=== PATIENT | male | born 1965 | race Caucasian/White ===

== ENCOUNTER 2024-11-04 11:53 | Outpatient (CLI) | payer OTHER, SELFPAY ==
--- OUTSIDE RECORDS SUMMARY | 2024-11-04 11:56 | XMS_ITS | Clinical Summary ---
Author Organization [facility] Address Critical access hospital[address] [place] [address] Care Team Providers Care Automotive Porter Name Role Phone Amparo Craven RN Unavailable Unavailable Valdez Abdalla MD Primary Care Provider [phone] Shelby Garcia MD Unavailable Allergies Active Allergy Reactions Criticality Noted Date Comments Diphenhydramine Joint Pain Medium 07/03/2014 Duloxetine Hcl Hives Low 09/29/2015 Ibuprofen Joint Pain Medium 07/03/2014 Sulfa Antibiotics Hives 08/24/2022 Vancomycin Unknown 09/29/2022 Medications clopidogrel 75 MG tabletIndications :blood thinner;last dose 12/13/2018 Take 1 tablet (75 mg total) by mouth daily. Indications: blood thinner;last dose 12/13/2018 013 Active metoprolol tartrate 50 MG tablet metoprolol tartrate 50 mg tablet TAKE 1 TABLET BY MOUTH TWICE DAILY Active lisinopril 10 MG tablet lisinopril 10 mg tablet TAKE 1 TABLET BY MOUTH DAILY Active omeprazole 40 MG capsule omeprazole 40 mg capsule,delayed release TAKE 1 CAPSULE BY MOUTH DAILY Active hydroCHLOROthiazi de 25 MG tablet hydrochlorothiazide 25 mg tablet TAKE 1 TABLET BY MOUTH TWICE DAILY Active TRESIBA FLEXTOUCH 200 UNIT/ML injection (PEN) Inject 60 Units into the skin 2 (two) times daily. MORNING AND NIGHT 021 Active aspirin EC (ECOTRIN) 81 MG tablet Take 2 tablets (162 mg total) by mouth daily. Ac tive Insulin Aspart Prot & Aspart (NOVOLOG MIX 70/30 SC) Inject 11 Units into the skin. 11 UNITS BREAKFAST AND LUNCH 13 UNITS AT DINNER Active atorvastatin (LIPITOR) 80 MG tablet Take 1 tablet (80 mg total) by mouth daily. 30 tablet Active ONETOUCH ULTRA test strip 5 (five) times daily. Active clotrimazole (MYCELEX) 10 MG mica Take 1 Mica (10 mg total) by mouth 6 (six) times daily. Active RYBELSUS 7 MG Tab Take 1 tablet by mouth daily. Active ezetimibe (ZETIA) 10 MG tablet Take 1 tablet (10 mg total) by mouth daily. 30 tablet 6 Active Additional Information Patient not taking.Reported on 08/02/2024 isosorbide mononitrate ER (IMDUR) 120 MG 24 hr tablet Take 1 tablet (120 mg total) by mouth every morning. May take an additional tablet as needed. 60 tablet 11 Active fluconazole (DIFLUCAN) 100 MG tablet Take 1 tablet (100 mg total) by mouth daily. Ac tive ondansetron (ZOFRAN-ODT) 4 MG disintegrating tablet Take 1 tablet (4 mg total) by mouth every 8 (eight) hours as needed for Nausea. 10 tablet 025 Active Active Problems Problem Noted Date Diagnosed Date S/P CABG (coronary artery bypass graft) 08/06/19 24 S/P coronary artery stent placement 08/06/2023 Chronic osteomyelitis involv ing ankle and foot, left ([facility]) 10/03/2022 Overview (10/03/2022): Added automatically from request for surgery [id number] Osteomyelitis ([facility]) 09/29/2022 Encounter for post surgical wound check 07/01/19 23 Cellulitis of left foot 05/15/2022 Ulcer of left foot ([facility]) 02/09/2022 Aftercare following surgery 01/24/2022 Infected traumatic ulcer of lower extremity, left, with unspecified severity ([facility]) 12/08/2021 Diabetic foot ulcer with osteomyelitis ([facility]) 12/02/2021 Abscess 11/02/2021 Acquired hammer toe of left foot 06/21/2021 Tobacco use 10/12/2018 Peripheral polyneuropathy 04/19/2018 Localized edema 02/08/2017 Neuropathy 02/08/2017 CAD (coronary artery disease) 02/16/2004 Overview (11/18/2015): CAD with CABG in February 2004, coronary PCI, RCA Hypertension Hyperlipidemia Diabetes (CMS/HCC HHS/HCC) Foot pain, right Overview (04/14/2021): ulcer removed;had previous surgery Cavus deformity of left foot Resolved Problems Problem Noted Date Diagnosed Date Resolved Date Pre-operative cardiovascular examination 05/05/2021 05/10/2021 Depression (emotion) 07/26/2017 018 Chest pain 07/17/2017 10/12/2018 Encounters Date Type Department Care Team Description 2024 1:13 PM CDT - 2024 5:55 PM CDT Emergency [facility] Critical access hospital[address] [place] [address] Igor No, Generalized Weakness Discharge Disposition: Home or Self Care (Routine Discharge) 2024 Travel from Last 3 Months Family History Medical History Relation Comments Cancer Father lung Diabetes Mother Hypertension Mother Relation Status Comments Brother 1 Alive Brother 2 Alive Father Maternal Grandfather Maternal Grandmother Mother Alive Paternal Grandfather Paternal Grandmother Sister Alive Son Alive Social History Tobacco Use Types Packs/Day Years Used Date Smoking Tobacco: Every Day Cigarettes 0.5 38 Smokeless Tobacco: Never Tobacco Cessation:Ready to Q uit: Not Asked; Counseling Given: Not Answered Alcohol Use Standard Drinks/Week Comments Not Currently 0 (1 standard drink = 0.6 oz pur e alcohol) very seldom Humiliation, Afraid, Rape, and Kick questionnair e Answer Date Recorded Within the last year, have y ou been afraid of your partner or ex-partner? No 09/29/2022 Within the last year, have y ou been humiliated or emotionally abused in other ways by your partner or ex-partner? No Within the last year, have y ou been kicked, hit, slapped, or otherwise physically hurt by your partner or ex-partner? No 09/29/2022 Within the last year, have y ou been raped or forced to have any kind of sexual activity by your partner or ex-partner? No 09/29/2022 Overall Financial Resource Strain (CARDIA) Answe r Date Recorded How hard is it for you to pa y for the very basics like food, housing, medical care, and heating? Patient declined 09/29/2022 Hunger Vital Sign Answer Date Recorded Within the past 12 months, y ou worried that your food would run out before you got the money to buy more. Patient declined Within the past 12 months, t he food you bought just didn't last and you didn't have money to get more. Patient declined PRAPARE - Transportation Answer Date Re corded In the past 12 months, has l ack of transportation kept you from medical appointments or from getting medications? No 09/15 In the past 12 months, has l ack of transportation kept you from meetings, work, or from getting things needed for daily living? No 09/29/2022 Housing Stability Vital Sign Answer Yonatan e Recorded In the last 12 months, was t here a time when you were not able to pay the mortgage or rent on time? No 09/29/2022 In the last 12 months, how many places have you lived? 1 09/29/2022 In the last 12 months, was t here a time when you did not have a steady place to sleep or slept in a retirement (including now)? No 09/29/2022 Sex and Gender Information Value Date Recorded Sex Assigned at Male 2024 2:16 PM CDT Legal Sex Male 10:29 PM CDT Gender Identity Not on file Sexual Orientation Not on file Last Filed Vital Signs Vital Sign Reading Time Taken Comments Blood Pressure 137/65 2024 5:30 PM CDT Pulse 58 2024 5:30 PM CDT Temperature 36.2 C (97.1 F) 2024 1:22 PM CDT Respiratory Rate 18 2024 4:30 PM CDT Oxygen Saturation 98% 2024 5:30 PM CDT Inhaled Oxygen Concentration - - Weight 122.9 kg (271 lb) 2024 1:22 PM CDT Height 195.6 cm (6' 5) 2024 1:22 PM CDT Body Mass Index 32.14 2024 1:22 PM CDT Plan of Treatment Upcoming Encounters Date Type Department Care Team (Late st Contact Info) Description 07/21/2025 8:[address] [facility] [address] [place] [address] Shelby Garcia MD [address] [place] [address] 07/23/2025 10:[address] [place] [address] Shelby Garcia MD [address] [place] [address] 08/11/2025 10:45 AM CDT Office Visit [facility] [id number] [place] [address] Shelby Garcia MD [address] [place] [address] Health Maintenance Due Date Last Done Comments ASCVD Statin 1966 Colorectal Cancer Screening Colonoscopy (10 Years) 1966 Kidney Health Evaluation 1966 Annual Physical 1969 Diabetes: Retinopathy Eye Exam 1984 Hepatitis C 1984 DTaP, Tdap and Td Vaccines (1 - Tdap) 1985 Hepatitis B Vaccines (1 of 3 - 19+ 3-dose series) 1985 Zoster Vaccines (1 of 2) 2016 Pneumococcal Vaccine: 50+ Years (2 of 2 - PCV) 01/02/2018 01/02/2017 COVID-19 Vaccine (1 - 2023- season) 2023 Hemoglobin A1C 05/10/2024 02/08/2024, 11/16, 05/25/2017 Lipid Panel 02/07/2025 02/08/2024, 11/16, 10/28/2022, Additional history exists Meningococcal B Vaccine Aged Out No l onger eligible based on patient's age to complete this topic Meningococcal Vaccine Aged Out No jaydon miki eligible based on patient's age to complete this topic RSV Immunizations Under 20 Months Aged Out No longer eligible based on patient's age to complete this topic Goals Goal Patient Goal Type Associated Problems Recent Progress Patient-Stated? 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 CABLE JOINTER Patient will return to prior living situation and remain independent in ADLs upon discharge from hospital Lifestyle No Donna Joy, RN Medical Devices Implanted Type Area Oil Operator Device Identifier Shelf Expiration Date Model / Serial / Lot Stent Stent Description:Heart -14 stents Screw Cortical Depuy 2.7 X 20mm - [id number] Implanted:Qty: 1 on 12/20/2018 by Ervin Turcios MD at [facility] Right: Foot [employer] [id number] / / NA Screw Cortical Depuy 2.7 X 22mm - [id number] Implanted:Qty: 1 on 12/20/2018 by Ervin Turcios MD at [facility] Right: Foot [employer] [id number] / / NA Screw Cortical Depuy 2.7 X 22mm - [id number] Implanted:Qty: 1 on 12/20/2018 by Ervin Turcios MD at [facility] Right: Foot [employer] [id number] / / NA K Wire Sujit 6 In X .062 In - [id number] Implanted:Qty: 1 on 12/20/2018 by Ervin Turcios MD at [facility] Right: Foot [employer] 08/14/2028 [id number] / / [id number] K Wire Sujit 6 In X .062 In - [id number] Implanted:Qty: 1 on 12/20/2018 by Ervin Turcios MD at [facility] Right: Foot [employer] 08/14/2028 [id number] / / [id number] K Wire Sujit 6 In X .062 In - [id number] Implanted:Qty: 1 on 12/20/2018 by Ervin Turcios MD at [facility] Right: Foot [employer] 10/14/2028 [id number] / / [id number] K Wire Sujit 6 In X .062 In - [id number] Implanted:Qty: 1 on 12/20/2018 by Ervin Turcios MD at [facility] Right: Foot [employer] 08/14/2028 [id number] / / [id number] Plate T Depuy - [id number] Implanted:Qty: 1 on 12/20/2018 by Ervin Turcios MD at [facility] Right: Foot [employer] [id number] / / NA Screw Cortical Depuy 2.7 X 28mm - [id number] Implanted:Qty: 1 on 12/20/2018 by Ervin Turcios MD at [facility] Right: Foot [employer] [id number] / / NA Screw Cortical Depuy 2.7 X 30mm - [id number] Implanted:Qty: 1 on 12/20/2018 by Ervin Turcios MD at [facility] Right: Foot [employer] [id number] / / NA T8 Narrow Lock T-Plate Implanted:Qty: 1 on 05/18/2021 by Ervin Turcios MD at [facility] Left: Foot [id number] / / Locking Screw 30mm Implanted:Qty: 1 on 05/18/2021 by Ervin Turcios MD at [facility] Left: Foot [id number] / / Locking Screw 20mm Implanted:Qty: 1 on 05/18/2021 by Ervin Turcios MD at [facility] Left: Foot [id number] / / Locking Screw 24mm Implanted:Qty: 1 on 05/18/2021 by Ervin Turcios MD at [facility] Left: Foot [id number] / / Locking Screw 18mm Implanted:Qty: 1 on 05/18/2021 by Ervin Turcios MD at [facility] Left: Foot [id number] / / K-Wires Implanted:Qty: 4 on 05/18/2021 by Ervin Turcios MD at [facility] Left: Foot 186-76 / / Explanted Type Area Oil Operator Device Identifier Shelf Expiration Date Model / Serial / Lot 2.0 Drill Bit Explanted:Qty: 1 on 12/20/2018 by Ervin Turcios MD at [facility] Right: Foot [facility] 2 / / NA Cameron Drill Bit Explanted:Qty: 1 on 05/18/2021 at [facility] Left: Foot [id number] / / T8 Blade Explanted:Qty: 1 on 05/18/2021 at [facility] Left: Foot [id number] / / K-Wires Explanted:Qty: 2 on 05/18/2021 at [facility] Left: Foot 186-76 / / Procedures Procedure Name Priority Date/Time Associated Diagnosis Comments TROPONIN, QUANT STAT 2024 3:49 PM CDT XR CHEST PORTABLE STAT 2024 1:[address] HEAD WO CON STAT 2024 1:47 PM CDT POCT GLUCOSE - DOCKED DEVICE Routine 2024 1:40 PM CDT PRO-BRAIN NATRIURETIC PEPTIDE STAT 2024 1:31 PM CDT ETHANOL STAT 2024 1:31 PM CDT MAGNESIUM STAT 2024 1:31 PM CDT PARTIAL THROMBOPLASTIN TIME,PTT STAT 2024 1:31 PM CDT PROTHROMBIN TIME, VENOUS STAT 2024 1:31 PM CDT TROPONIN, QUANT STAT 2024 1:31 PM CDT COMPREHENSIVE METABOLIC PANEL STAT 2024 1:31 PM CDT CBC W/DIFF AUTOMATED STAT 2024 1:31 PM CDT ECG 12-LEAD Routine 2024 1:15 PM CDT LIPID PANEL Routine 02/08/2024 8:16 AM CDT Hyperlipidemia, unspecified hyperlipidemia type HEMOGLOBIN, GLYCOSYLATED Routine 02/08/2024 8:16 AM CDT Type 2 diabetes mellitus without complication, without long-term current use of insulin ([facility]) from Last 3 Months or Most Recently Relevant to Health Maintenance Results * TROPONIN, QUANT (2024 3:49 PM CDT) Only the most recent of2 resultswithin the time period is included. TROPONIN I HIGH SENSITIVITY 21 0 - 76 ng/L 2024 4:22 PM CDT [facility] 2024 3:49 PM CDT Igor No DO LABORATORY Final Result [facility] [address] [place] [address], * XR CHEST PORTABLE (2024 1:55 PM CDT) Anatomical Region Laterality Modality Chest Radiographic Debbie ging 2024 1:53 PM CDT Impressions 2024 1:54 PM CDT IMPRESSION: No acute cardiopulmonary process identified. Ordered By: IGOR NO Interpreted By: Olegario Cadet MD, 2024 1:53 PM Narrative 2024 1:54 PM CDT [address] [place] [address] Examination: Portable chest. Exam time: 1346 hours. Clinical history: Dyspnea. Comparison: 12/30/2021. Technique: AP upright view. Findings: Allowing for differences in projection and rotation, the cardiomediastinal silhouette is stable. Allowing for projection, the heart size is probably normal. Pulmonary vascularity is within normal limits. Changes from median sternotomy and bypass grafting are again evident. The left-sided PICC line has been removed. No acute infiltrates or effusions are identified. The visualized bony thorax is stable. Procedure Note Olegario Cadet MD - [address] [place] [address] Examination: Portable chest. Exam time: 1346 hours. Clinical history: Dyspnea. Comparison: 12/30/2021. Technique: AP upright view. Findings: Allowing for differences in projection and rotation, thecardiomediastinal silhouette is stable. Allowing for projection, the heartsize is probably normal. Pulmonary vascularity is within normal limits.Changes from median sternotomy and bypass grafting are again evident. Theleft-sided PICC line has been removed. No acute infiltrates or effusionsare identified. The visualized bony thorax is stable. IMPRESSION: No acute cardiopulmonary process identified. Ordered By: IGOR NO Interpreted By: Olegario Cadet MD, 2024 1:53 PM us Igor No DO GENERAL IMAGING Final Result * CT HEAD WO CON (2024 1:47 PM CDT) Anatomical Region Laterality Modality Head Computed Tomogra phy 2024 1:55 PM CDT Impressions 2024 1:58 PM CDT IMPRESSION: 1. No acute intracranial process identified. 2. Mild small vessel disease. Ordered By: IGOR NO Interpreted By: Olegario Cadet MD, 2024 1:55 PM Narrative 2024 1:58 PM CDT [address] [place] [address] Examination: CT of the head without contrast. Exam time: 1347 hours. Clinical history: Right-sided weakness for two days. History of diabetes, hypertension and hyperlipidemia. Comparison: None. Technique: Noncontrast axial scans from skull base to vertex. Sagittal and coronal reconstructions were performed from the data set. A dose lowering technique was used for this procedure, which may include, but is not limited to, dose reduction techniques, automated exposure control, the use of iterative reconstruction and ALARA/Image Gently techniques. Findings: The ventricles are normal in size and configuration. No shift of midline or mass effect is noted. There is mild prominence of the fissures and sulci, compatible with age. There is mild periventricular decreased attenuation, compatible with small vessel disease. No other areas of abnormal x-ray attenuation are identified. In particular, there is no mass, hemorrhage or sign of acute stroke. No extracerebral fluid collections. The mastoid air cells and visualized paranasal sinuses appear clear. Procedure Note Olegario Cadet MD - [address] [place] [address] Examination: CT of the head without contrast. Exam time: 1347 hours. Clinical history: Right-sided weakness for two days. History of diabetes,hypertension and hyperlipidemia. Comparison: None. Technique: Noncontrast axial scans from skull base to vertex. Sagittal andcoronal reconstructions were performed from the data set. A dose loweringtechnique was used for this procedure, which may include, but is notlimited to, dose reduction techniques, automated exposure control, the useof iterative reconstruction and ALARA/Image Gently techniques. Findings: The ventricles are normal in size and configuration. No shift ofmidline or mass effect is noted. There is mild prominence of the fissuresand sulci, compatible with age. There is mild periventricular decreasedattenuation, compatible with small vessel disease. No other areas ofabnormal x-ray attenuation are identified. In particular, there is nomass, hemorrhage or sign of acute stroke. No extracerebral fluidcollections. The mastoid air cells and visualized paranasal sinuses appearclear. IMPRESSION: 1. No acute intracranial process identified. 2. Mild small vessel disease. Ordered By: IGOR NO Interpreted By: Olegario Cadet MD, 2024 1:55 PM us Igor No DO CT Final Result * (ABNORMAL) POCT glucose (2024 1:40 PM CDT) GLUCOSE POC 253(H) 70 - 99 MG/DL 2024 1:42 PM CDT [facility] 2024 1:40 PM CDT us Igor No DO POCT ORDERABLES - DEVICE Fin al Result Performing Organization Address [facility] Co de Phone Number [facility] [address] [place] [address], * (ABNORMAL) PRO-BRAIN NATRIURETIC PEPTIDE (2024 1:31 PM CDT) PRO-B TYPE NATRIURETIC PEPTIDE 212(H) <125 PG/ML 2024 2:16 PM CDT [facility] Comment: CUT POINTS ESTABLISHED BY INTERNATIONAL COLLABORATIVE ON NT PROBNP (ICON) STUDY (2006). AGE INDEPENDENT: <300 PG/ML HAS A 99% NEGATIVE PREDICTIVE VALUE FOR EXCLUDING ACUTE CHF <50 YEARS: >450 PG/ML IS CONSISTENT WITH ACUTE CHF 50-75 YEARS: >900 PG/ML IS CONSISTENT WITH ACUTE CHF >75 YEARS: >1800 PG/ML IS CONSISTENT WITH ACUTE CHF IN PATIENTS WITH RENAL INSUFFICIENCY (GFR <60), >1200 PG/ML YIELDS A DIAGNOSTIC SENSITIVITY AND SPECIFICITY OF 89% AND 72% FOR ACUTE CHF. 2024 1:3 1 PM CDT us Igor No DO LABORATORY Final Result Performing Organization Address [facility]/ZIP Co de Phone Number [facility] [address] [place] [address], * PARTIAL THROMBOPLASTIN TIME,PTT (2024 1:31 PM CDT) PTT 30.5 25.1 - 36.5 SEC 2024 1:50 PM CDT [facility] 2024 1:31 PM CDT us Igor No DO LABORATORY Final Result Performing Organization Address City/State/[facility] Co de Phone Number [facility] [address] [place] [id number], * PROTIME/INR, VENOUS (2024 1:31 PM CDT) Pathologist [facility] PROTIME 11.8 9.4 - 12.5 SEC 2024 1:50 PM CDT [facility] INR 1.0 0.8 - 1.0 2024 1:50 PM CDT [facility] 2024 1:31 PM CDT us Igor No DO LABORATORY Final Result [facility] Critical access hospital[address] [place] [address], * (ABNORMAL) COMPREHENSIVE METABOLIC PANEL (2024 1:31 PM CDT) SODIUM S/P/B 137 136 - 145 MMOL/L 2024 2:16 PM CDT [facility] POTASSIUM S/P/B 4.3 3.5 - 5.1 MMOL/L 2024 2:16 PM CDT [facility] Comment:MILD HEMOLYSIS, RESU LT MAY BE AFFECTED. CHLORIDE S/P/B 102 98 - 107 MMOL/L 2024 2:16 PM [facility] CO2 28.8 21.0 - 32.0 MMOL/L 2024 2:16 PM [facility] GLUCOSE 256(H) 70 - 99 MG/DL 2024 2:16 PM [facility] Comment: FASTING GLUCOSE 100 TO 125 MG/DL IS CONSISTENT WITH IMPAIRED FASTING GLUCOSE. FASTING GLUCOSE >125 MG/DL IS CONSISTENT WITH DIABETES. RANDOM GLUCOSE >200 MG/DL WITH HYPERGLYCEMIC SYMPTOMS IS CONSISTENT WITH DIABETES. PER ADA GUIDELINES BUN 28(H) 6 - 24 MG/DL 2024 2:16 PM [facility] CREATININE S/P/B 1.81(H) 0.70 - 1.30 MG/DL 2024 2:16 PM [facility] CALCIUM S/P/B 9.0 8.4 - 10.5 MG/DL 2024 2:16 PM [facility] BILIRUBIN TOTAL S/P/B 0.5 0.2 - 1.0 MG/DL 2024 2:16 PM [facility] Comment: THIS ASSAY IS NOT RECOMMENDED FOR PATIENTS UNDERGOING TREATMENT WITH ELTROMBOPAG DUE TO THE POTENTIAL FOR FALSELY ELEVATED RESULTS. ALKALINE PHOSPHATASE S/P/B 108 45 - 115 U/L 2024 2:16 PM [facility] AST 26 15 - 37 U/L 2024 2:16 PM [facility] Comment:MILD HEMOLYSIS, RESU LT MAY BE AFFECTED. ALT 22 16 - 63 U/L 2024 2:16 PM [facility] TOTAL PROTEIN S/P/B 6.9 6.4 - 8.2 G/DL 2024 2:16 PM [facility] ALBUMIN S/P/B 2.6(L) 3.4 - 5.0 G/DL 2024 2:16 PM [facility] ANION GAP 6.2 5.0 - 15.0 MMOL/L 2024 2:16 PM [facility] OSMOLALITY (CALC) 298 MOSM/KG 025 2:16 PM CDT [facility] Comment:REFERENCE RANGE NOT ESTABLISHED GFR ESTIMATE 43(L) >89 ML/MIN/1. 73 M2 2024 2:16 PM CDT [facility] GFR NOTES GFR REFERENCE S: 2024 2:16 PM CDT [facility] Comment: THE ESTIMATED GFR IS CALCULATED USING THE 2020 CKD-EPI EQUATION. THE FOLLOWING CATEGORIES FOR GRADING RENAL FUNCTION ARE RECOMMENDED BY THE INTERNATIONAL SOCIETY OF NEPHROLOGY (KDIGO 2012 CLINICAL PRACTICE GUIDELINE). G1,NORMAL OR HIGH: >89 ml/min/1.73 m2 G2,MILDLY DECREASED: 60-89 ml/min/1.73 m2 G3A,MILDLY TO MODERATELY DECREASED: 45-59 ml/min/1.73 m2 G3B,MODERATELY TO SEVERELY DECREASED: 30-44 ml/min/1.73 m2 G4,SEVERELY DECREASED: 15-29 ml/min/1.73 m2 G5,KIDNEY FAILURE: <15 ml/min/1.73 m2 2024 1:31 PM CDT us Igor No DO LABORATORY Final Result [facility] [address] [place] [address], * (ABNORMAL) CBC W/DIFF AUTOMATED (2024 1:31 PM CDT) WBC 11.03(H) 4.00 - 10.80 x10'3/uL 2024 1:44 PM CDT [facility] RBC 4.74 4.50 - 6.10 x10'6/uL 2024 1:44 PM CDT [facility] HGB 13.8 13.0 - 18.0 G/DL 2024 1:44 PM CDT [facility] HCT 40.7 37.0 - 52.0 % 2024 1:44 PM CDT [facility] MCV 85.9 78.0 - 100.0 FL 2024 1:44 PM CDT [facility] MCH 29.1 27.0 - 31.0 PG 2024 1:44 PM CDT [facility] MCHC 33.9 33.0 - 36.0 G/DL 2024 1:44 PM CDT [facility] RDW 12.5 11.5 - 14.5 % 2024 1:44 PM CDT [facility] PLT 255 150 - 350 x10'3/uL 2024 1:44 PM CDT [facility] MPV 10.4 7.4 - 10.4 FL 2024 1:44 PM CDT [facility] CBC COMMENT NORMAL REFERENCE RANGE NOT ESTABLISHED FOR THE PROPORTIONAL LEUKOCYTE DIFFERENTIAL. 2024 1:44 PM CDT [facility] NEUTROPHILS % 66.9 % 2024 1:44 PM CDT [facility] LYMPHOCYTES % 25.8 % 2024 1:44 PM CDT [facility] MONOCYTES % 5.0 % 2024 1:44 PM CDT [facility] EOSINOPHILS % 1.5 % 2024 1:44 PM CDT [facility] BASOPHILS % 0.5 % 2024 1:44 PM CDT [facility] IMMATURE GRANS % 0.3 % 08/30/19 1:44 PM CDT [facility] NRBC % 0.0 % 2024 1:44 PM CDT [facility] ABS. NEUTROPHILS 7.38 1.60 - 8.30 x10'3/uL 2024 1:44 PM CDT [facility] ABS. LYMPHOCYTES 2.85 0.80 - 4.70 x10'3/uL 2024 1:44 PM CDT [facility] ABS. MONOCYTES 0.55 0.00 - 1.50 x10'3/uL 2024 1:44 PM CDT [facility] ABS. EOSINOPHILS 0.16 0.00 - 0.40 x10'3/uL 2024 1:44 PM CDT [facility] ABS. BASOPHILS 0.06 0.00 - 0.20 x10'3/uL 2024 1:44 PM CDT [facility] ABS. IMMATURE GRANULOCYTES 0.03 0.00 - 0.03 x10'3/uL 2024 1:44 PM CDT [facility] ABS. NUCLEATED RBC'S 0.00 0.00 - 0.01 x10'3/uL 2024 1:44 PM CDT [facility] 2024 1:31 PM CDT us Igor No DO LABORATORY Final Result Performing Organization Address City/[facility]/[place] [address], * (ABNORMAL) MAGNESIUM (2024 1:31 PM CDT) MAGNESIUM 1.5(L) 1.8 - 2.4 MG/DL 2024 2:16 PM CDT [facility] 2024 1:31 PM CDT us Igor No DO LABORATORY Final Result [facility] [address] [place] [address], * ETHANOL (2024 1:31 PM CDT) ALCOHOL S/P/B <0.003 <0.003 G/DL 2024 2:16 PM CDT [facility] 2024 1:31 PM CDT Igor No DO LABORATORY Final Result Performing Organization Address [facility] Co de Phone Number [facility] [address] [place] [phone], * ECG 12 lead (2024 1:15 PM CDT) 2024 1:15 PM CDT Narrative [facility] - 2024 5:[address] 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 Operator: : 1965 Requested By: IGOR NO Order Number: [id number] Reading MD: Shelby Garcia Measurements Intervals [place] Rate: 66 P: 38 WA: 171 QRS: 29 QRSD: 99 T: 65 QT: 433 QTc: 456 Interpretive Statements SINUS RHYTHM NONSPECIFIC T-WAVE ABNORMALITY Igor No DO ECG ORDERABLES Final Result Performing Organization Address City/[facility]/ZIP Co de Phone Number [facility] * (ABNORMAL) HGB A1C (02/08/2024 8:16 AM CDT) HGB A1C 9.1(H) <5.7 % 02/08/2024 12:45 PM CDT [facility] ESTIMATED AVG GLUCOSE 214(H) 74 - 114 MG/DL 02/08/2024 12:45 PM CDT [facility] 02/08/2024 8:16 AM CDT Shelby Garcia MD LABORATORY Final Result [facility] [address] [place] [address], [id number] * (ABNORMAL) LIPID PANEL (02/08/2024 8:16 AM CDT) CHOLESTEROL 131 MG/DL 02/08/2024 12:09 PM CDT [facility] Comment:DESIRABLE: <200 TRIGLYCERIDES 212 MG/DL 02/08/2024 12:09 PM CDT [facility] Comment:200-499 HIGH HDL 26(L) >39 MG/DL 02/08/2024 12:09 PM CDT [facility] LDL-C 63 MG/DL 02/08/2024 12:09 PM CDT [facility] Comment:<100 OPTIMAL VLDL CALCULATION 42 MG/DL 02/08/20 12:09 PM CDT [facility] Comment:REFERENCE RANGE NOT ESTABLISHED CHOL/HDL RATIO 5.0 02/08/2024 12:09 PM CDT [facility] Comment:REFERENCE RANGE NOT ESTABLISHED LDL/HDL 2.4 02/08/2024 12:09 PM CDT [facility] Comment:REFERENCE RANGE NOT ESTABLISHED NON HDL CHOLESTEROL 105 MG/DL 02/08/2024 12:09 PM T [facility] Comment:REFERENCE RANGE NOT ESTABLISHED 02/08/2024 8:16 AM CDT Shelby Garcia MD LABORATORY Final Result [facility] [address] [place] [address], [id number] from Last 3 Months or Most Recently Relevant to Health Maintenance Insurance [employer] MEDICAID Advance Directives * Full Code (Latest Code Status on File) Date Activated Date Inactivated Comments 09/30/2022 2:46 PM 10/01/2022 7:06 PM * Full Code Date Activated Date Inactivated Comments 09/29/2022 2:19 PM 09/30/2022 2:14 PM * Full Code Date Activated Date Inactivated Comments 09/29/2022 2:02 PM 09/29/2022 2:19 PM * Full Code Date Activated Date Inactivated Comments 05/15/2022 1:29 PM 05/16/2022 7:23 PM * Full Code Date Activated Date Inactivated Comments 11/02/2021 5:44 PM 11/04/2021 6:18 PM Care Teams Automotive Porter Relationship Specialty Start Date End Date Valdez Abdalla MD [address] [place] [address] PCP - General FAMILY PRACTICE 10/12/22 Amparo Craven, contract runner (Ambulatory) CARE MANAGEMENT 05/17/22 Shelby Garcia MD [address] [place] [address] Consulting Physician CARDIOVASCULAR DISEASE 10/22/23
--- OUTSIDE RECORDS SUMMARY | 2024-11-04 11:56 | XMS_ITS | Encounter Summary ---
Author Organization [facility] Address [facility] [place] [address] Care Team Providers Care County Records Management Officer Name Role Phone Ryan Cohn MD Primary Care Provider Bob Peoples MD Unavailable [phone] Margareth Flores APRN, NP-C Unavailable [phone] Ervin Turcios MD Unavailable [phone] Amparo Craven RN Unavailable Unavailable Latricia Beltran MD Unavailable [phone] Valdez Abdalla MD Primary Care Provider [phone] Shelby Garcia MD Unavailable Encounter Details Date Type Department Care Team (Late st Contact Info) Description 03/24/2018 Abstract [facility] Neuroscience [facility] [address] [address] Gurwinder Spears MD [address] [address] Social History Tobacco Use Types Packs/Day Years Used Date Smoking Tobacco: Some Days Cigarettes 0.5 28 Smokeless Tobacco: Current Comments:Current smoker, 1/2 ppd for 28 years Alcohol Use Standard Drinks/Week Comments No 0 (1 standard drink = 0.6 oz pur e alcohol) Sex and Gender Information Value Date Recorded Sex Assigned at Male 2024 2:16 PM CDT Legal Sex Male 10:29 PM CDT Gender Identity Not on file Sexual Orientation Not on file documented as of this encounter Plan of Treatment Upcoming Encounters Date Type Department Care Team (Late st Contact Info) Description 07/21/2025 8:[address] [place] [address] Shelby Garcia MD [address] [place] [address] 07/23/2025 10:[address] 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 COVID-19 Rule Out 05/15/2021 05/15/2021 05/15/2021 7:18 AM WILDLIFE AND GAME PROTECTOR COVID-19 Rule Out 11/02/2021 11/02/2021 11/02/2021 11:38 AM CDT documented as of this encounter Care Teams County Records Management Officer Relationship Specialty Start Date End Date Ryan Cohn MD [address] [place] [phone] PCP - General FAMILY PRACTICE 11/18/15 10/11/22 Valdez Abdalla MD [address] [place] [address] PCP - General FAMILY PRACTICE 10/12/22 Bob Peoples MD [address] [place] [phone] Consulting Physician CARDIOVASCULAR DISEASE 04/05/18 Margareth Flores, CLIENT FINANCE ANALYST, BULLDOGGER-C [address] [place] [phone] NURSE PRACTITIONER 10/12/18 10/21/23 Ervin Turcios MD [address] [phone] Consulting Physician ORTHOPAEDIC SURGERY 10/12/18 Amparo Craven, class a truck driver (Ambulatory) CARE MANAGEMENT 05/17/22 Latricia Beltran MD [address] [place] [phone] Internal Medicine - Infectious Disease 09/19/22 09/20/23 Shelby Garcia MD [address] [place] [address] Consulting Physician CARDIOVASCULAR DISEASE 10/22/23 documented as of this encounter
--- OUTSIDE RECORDS SUMMARY | 2024-11-04 11:57 | XMS_ITS | Encounter Summary ---
Author Organization [facility] Address [facility] [place] [address] Care Team Providers Care Director Of Primary Care Name Role Phone Ryan Cohn MD Primary Care Provider Bob Peoples MD Unavailable [phone] Margareth Flores APRN BLUEPRINT CUTTERRandyC Unavailable Ervin Turcios MD Unavailable [phone] Amparo Craven RN Unavailable Unavailable Latricia Beltran MD Unavailable [phone] Valdez Abdalla MD Primary Care Provider [phone] Shelby Garcia MD Unavailable Encounter Details Date Type Department Care Team (Late st Contact Info) Description 09/22/2018 Abstract [facility] [address] [place] [id number] , Generic Conversion, Social History Tobacco Use Types Packs/Day Years Used Date Smoking Tobacco: Every Day Cigarettes 0.5 28 Smokeless Tobacco: Never Comments:Current smoker, 1/2 ppd for 28 years [...] CDT [facility]ointment [facility] [address] [place] [address] Shelby Garcia MD [address] [place], [place] [address] 07/23/2025 10:00 AM CDT Appointment [facility] [place] [address] [place] [address] Shelby Garcia MD [address] [place] [address] 08/11/2025 10:45 AM CDT Office Visit [facility] [address] [place] [phone] Shelby Garcia MD [address] [place], [place] [address] documented as of this encounter Visit Diagnoses Not on filedocumented in this encounter Additional Health Concerns Infection Onset Date Last Indicated Resolved Time COVID-19 Rule Out 04/17/2021 04/17/2021 04/18/2021 7:17 PM CAROUSEL ATTENDANT COVID-19 Rule Out 05/15/2021 05/15/2021 05/15/2021 7:18 AM CAROUSEL ATTENDANT COVID-19 Rule Out 11/02/2021 11/02/2021 11/02/2021 11:38 AM CDT documented as of this encounter Care Teams Director Of Primary Care Relationship Specialty Start Date End Date Ryan Cohn MD [address] [place] [phone] PCP - General FAMILY PRACTICE 11/18/15 10/11/22 Valdez Abdalla MD [address] [place] [phone] PCP - General FAMILY PRACTICE 10/12/22 Bob Peoples MD [address] [place] [phone] Consulting Physician CARDIOVASCULAR DISEASE 04/05/18 Margareth Flores, COOK FRY, BLUEPRINT CUTTER-C [address] [place] [phone] NURSE PRACTITIONER 10/12/18 10/21/23 Ervin Turcios MD [address] [place] [phone] Consulting Physician ORTHOPAEDIC SURGERY 10/12/18 Amparo Craven, prep person (Ambulatory) CARE MANAGEMENT 05/17/22 Latricia Beltran MD [address] [place] [phone] Internal Medicine - Infectious Disease 09/19/22 09/20/23 Shelby Garcia MD [address] [place] [address] Consulting Physician CARDIOVASCULAR DISEASE 10/22/23 documented as of this encounter
--- OUTSIDE RECORDS SUMMARY | 2024-11-04 11:57 | XMS_ITS | Encounter Summary ---
Author Organization [facility] Address [facility] [place] [address] Care Team Providers Care Tool Trouble Shooter Name Role Phone Ryan Cohn MD Primary Care Provider Bob Peoples MD Unavailable [phone] Margareth Flores APRN RESIDENTIAL SERVICE TECHNICIANRandyC Unavailable [phone] Ervin Turcios MD Unavailable [phone] Amparo Craven RN Unavailable Unavailable Latricia Beltran MD Unavailable [phone] Valdez Abdalla MD Primary Care Provider [phone] Shelby Garcia MD Unavailable Encounter Details Date Type Department Care Team (Late st Contact Info) Description 08/26/2015 Abstract [facility] AT [address] [phone] Ibrahima Wilson MD Social History Tobacco Use Types Packs/Day Years Used Date Smoking Tobacco: Some Days Cigarettes 0.5 28 Comments:Current smoker, 1/2 ppd for 28 years [...] Info) Description 07/21/2025 8:30 AM CDT [facility] [address] [place] [address] Shelby Garcia MD [address] [place] [address] 07/23/2025 10:[address] [facility] [address] [place] [address] Shelby Garcia MD [address] [place] [address] 08/11/2025 10:45 AM CDT Office Visit [facility] [address] [place] [phone] Shelby Garcia MD 9 [place], [place] [phone] documented as of this encounter Visit Diagnoses Not on filedocumented in this encounter Additional Health Concerns Infection Onset Date Last Indicated Resolved Time COVID-19 Rule Out 04/17/2021 04/17/2021 04/18/2021 7:17 PM MANUFACTURING COORDINATOR COVID-19 Rule Out 05/15/2021 05/15/2021 05/15/2021 7:18 AM MANUFACTURING COORDINATOR COVID-19 Rule Out 11/02/2021 11/02/2021 11/02/2021 11:38 AM CDT documented as of this encounter Care Teams Tool Trouble Shooter Relationship Specialty Start Date End Date Ryan Cohn MD [address] [place] [phone] PCP - General FAMILY PRACTICE 11/18/15 10/11/22 Valdez Abdalla MD [address] [place] [address] PCP - General FAMILY PRACTICE 10/12/22 Bob Peoples MD [address] [place] [phone] Consulting Physician CARDIOVASCULAR DISEASE 04/05/18 Margareth Flores, INBOUND SALES CONSULTANT, RESIDENTIAL SERVICE TECHNICIAN-C [address] [place] [phone] NURSE PRACTITIONER 10/12/18 10/21/23 Ervin Turcios MD [address] [place] [phone] Consulting Physician ORTHOPAEDIC SURGERY 10/12/18 Amparo Craven, binder and wrapper packer (Ambulatory) CARE MANAGEMENT 05/17/22 Latricia Beltran MD [address] [place] [phone] Internal Medicine - Infectious Disease 09/19/22 09/20/23 Shelby Garcia MD 9 [place] [address] Consulting Physician CARDIOVASCULAR DISEASE 10/22/23 documented as of this encounter
--- OUTSIDE RECORDS SUMMARY | 2024-11-04 11:57 | XMS_ITS | Encounter Summary ---
Author Organization [facility] Address [facility] [place] [address] Care Team Providers Care Correspondence Coordinator Name Role Phone Ryan Cohn MD Primary Care Provider Bob Peoples MD Unavailable [phone] Margareth Flores APRN, NP-C Unavailable [phone] Ervin Turcios MD Unavailable [phone] Amparo Craven RN Unavailable Unavailable Latricia Beltran MD Unavailable [phone] Valdez Abdalla MD Primary Care Provider [phone] Shelby Garcia MD Unavailable Encounter Details Date Type Department Care Team (Late st Contact Info) Description 09/29/2015 Outreach Visit [facility] AT [address] [phone] Ibrahima Wilson MD Social History Tobacco Use Types Packs/Day Years Used Date Smoking Tobacco: Smoker, Current Status Unknown Sex and Gender Information Value Date Recorded Sex Assigned at Male 2024 2:16 PM CDT Legal Sex Male 10:29 PM CDT Gender Identity Not on file Sexual Orientation Not on file documented as of this encounter Plan of Treatment Upcoming Encounters Date Type Department Care Team (Late st Contact Info) Description 07/21/2025 8:[address] [facility] [address] [place] [address] Shelby Garcia MD [address] [place] [address] 07/23/2025 10:00 AM CDT Appointment [address] [place] [address] Shelby Garcia MD [address] [place] [address] 08/11/2025 10:45 AM CDT Office Visit [facility] [address] [place] [phone] Shelby Garcia MD [address] [place] [address] documented as of this encounter Visit Diagnoses Not on filedocumented in this encounter Additional Health Concerns Infection Onset Date Last Indicated Resolved Time COVID-19 Rule Out 04/17/2021 04/17/2021 04/18/2021 7:17 PM RAMP BOSS COVID-19 Rule Out 05/15/2021 05/15/2021 05/15/2021 7:18 AM RAMP BOSS COVID-19 Rule Out 11/02/2021 11/02/2021 11/02/2021 11:38 AM CDT documented as of this encounter Care Teams Correspondence Coordinator Relationship Specialty Start Date End Date Ryan Cohn MD [address] [place] [phone] PCP - General FAMILY PRACTICE 11/18/15 10/11/22 Valdez Abdalla MD [address] [facility] [place] [address] PCP - General FAMILY PRACTICE 10/12/22 Bob Peoples MD [address] [place] [address] Consulting Physician CARDIOVASCULAR DISEASE 04/05/18 Margareth Flores APRN, BEAD PREPARER-C [address] [phone] NURSE PRACTITIONER 10/12/18 10/21/23 Ervin Turcios MD [address] [phone] Consulting Physician ORTHOPAEDIC SURGERY 10/12/18 Amparo Craven, roller printer (Ambulatory) CARE MANAGEMENT 05/17/22 Latricia Beltran MD [address] [place] [phone] Internal Medicine - Infectious Disease 09/19/22 09/20/23 Shelby Garcia MD [address] [place] [address] Consulting Physician CARDIOVASCULAR DISEASE 10/22/23 documented as of this encounter
--- OUTSIDE RECORDS SUMMARY | 2024-11-04 11:57 | XMS_ITS | Encounter Summary ---
Author Organization [facility] Address [address] [place] [address] Care Team Providers Care Relay Man Name Role Phone Bob Peoples MD Unavailable [phone] Margareth Flores APRN, NP-C Unavailable Ervin Turcios MD Unavailable [phone] Amparo Craven RN Unavailable Unavailable Latricia Beltran MD Unavailable [phone] Valdez Abdalla MD Primary Care Provider [phone] Shelby Garcia MD Unavailable Encounter Details Date Type Department Care Team (Late st Contact Info) Description 05/29/2023 Abstract [facility] [address] [place] [address] Bob Peoples MD [address] [place] [address] Social History Tobacco Use Types Packs/Day Years Used Date Smoking Tobacco: Every Day Cigarettes 0.5 38 Smokeless Tobacco: Never Alcohol Use Standard Drinks/Week Comments Not Currently [...] place to sleep or slept in a mcc (including now)? No 09/29/2022 Sex and Gender Information Value Date Recorded Sex Assigned at Male 2024 2:16 PM CDT Legal Sex Male 10:29 PM CDT Gender Identity Not on file Sexual Orientation Not on file documented as of this encounter Functional Status * Are you deaf or do you have serious difficulty hearing Answer Date of Assessment Author Status No 09/30/2022 2:00 PM CDT Jocelyne Rodriguez R N Active * Are you blind or do you have serious difficulty seeing, even when wearing glasses? Answer Date of Assessment Author Status No 09/30/2022 2:00 PM CDT Jocelyne Rodriguez R N Active * Do you have serious difficulty walking or climbing stairs? Answer Date of Assessment Author Status No 09/30/2022 2:00 PM CDT Jocelyne Rodriguez R N Active * Do you have difficulty dressing or bathing? Answer Date of Assessment Author Status No 09/30/2022 2:00 PM CDT Jocelyne Rodriguez R N Active * Because of a physical, mental, or emotional condition, do you have difficulty doing errands alone such as visiting a doctor's office or shopping? Answer Date of Assessment Author Status No 09/30/2022 2:00 PM CDT Jocelyne Rodriguez R N Active documented as of this encounter Mental Status * Because of a physical, mental, or emotional condition, do you have serious difficulty concentrating, remembering, or making decisions? Answer Entry Date Author Status No 09/30/2022 2:00 PM CDT Jocelyne Rodriguez R N Active documented in this encounter Plan of Treatment Upcoming Encounters Date Type Department Care Team (Late st Contact Info) Description 07/21/2025 8:[address] [facility] [place] [place] [address] Shelby Garcia MD [address] [place] [address] 07/23/2025 10:[address] [facility] [place] [address] Shelby Garcia MD [address] [place] [address] 08/11/2025 10:45 AM CDT Office Visit [facility] [phone] Shelby Garcia MD [address] [place] [phone] documented as of this encounter Goals Goal Patient Goal Type Associated Problems Recent Progress Patient-Stated? Author Health - patient able to perform ADLs independently General No Emelia, Shakira A, FOOD TRADES ASSISTANTS Patient will return to prior living situation and remain independent in ADLs upon discharge from hospital Lifestyle No Donna Joy RN documented as of this encounter Procedures Procedure Name Priority Date/Time Associated Diagnosis Comments LIPID PANEL Routine 10/28/2022 documented in this encounter Results * LIPID PANEL (10/28/2022) CHOLESTEROL 151 100 - 199 HDL 32 >39 TRIGLYCERIDES 132 0 - 149 CHOL/HDL RATIO 4.7 0.0 - 5.0 LDL (CALCULATED) 95 0 - 99 10/28/2022 [facility] Final Result documented in this encounter Visit Diagnoses Not on filedocumented in this encounter Care Teams Relay Man Relationship Specialty Start Date End Date Valdez Abdalla MD [address] [place] [address] PCP - General FAMILY PRACTICE 10/12/22 Bob Peoples MD [address] [place] [phone] Consulting Physician CARDIOVASCULAR DISEASE 04/05/18 Margareth Flores APRN, CUSTOMER CARE AGENT-C [address] [place] [phone] NURSE PRACTITIONER 10/12/18 10/21/23 Ervin Turcios MD [address] [place] [phone] Consulting Physician ORTHOPAEDIC SURGERY 10/12/18 Amparo Craven RN Care Manager (Ambulatory) CARE MANAGEMENT 05/17/22 Latricia Beltran MD [address] [place] [phone] Internal Medicine - Infectious Disease 09/19/22 09/20/23 Shelby Garcia MD [address] [place] [address] Consulting Physician CARDIOVASCULAR DISEASE 10/22/23 documented as of this encounter
[2024-11-04 12:01] LABS: Hematocrit 43.3 % (40.0-54.0); Hemoglobin 14.9 g/dL (14.0-18.0); Immature Granulocyte Percent A 0.7 % (0.0-0.0); Lymphocytes Absolute Auto 3.74 K/mm3 (1.10-4.50); Mean Corpuscular HGB Conc 34.4 g/dL (32-36); Mean Corpuscular Hemoglobin 29.7 pg (27.0-31.0); Mean Corpuscular Volume 86.4 fL (78.0-102.0); Nucleated Red Blood Cells Absolute Auto 0.00 K/mm3 (0.00-0.00); Nucleated Red Blood Cells Perc 0.0 % (0-0.0); Platelet Count Result 310 K/mm3 (150-420); Red Blood Count 5.01 M/mm3 (4.70-6.10); White Blood Count 14.5 K/mm3 (4.8-10.8)
[2024-11-04 12:10] LABS: Hemoglobin A1C 13.2 % (<5.7)
[2024-11-04 12:12] LABS: Alanine Aminotransferase 22 U/L (6-50); Albumin Level 3.7 g/dL (3.5-5.1); Alkaline Phosphatase 134 U/L (38-126); Anion Gap 4 mmol/L (4-12); Aspartate Amino Transferase 21 U/L (17-59); Bilirubin,Total 0.5 mg/dL (0.2-1.3); Blood Urea Nitrogen 30 mg/dL (9-20); Calcium 9.1 mg/dL (8.4-10.2); Carbon Dioxide 26 mmol/L (22-30); Chloride 103 mmol/L (98-107); Cholesterol 153 mg/dL (0-200); Estimated Glomerular Filt Rate 35; Glucose 300 mg/dL (65-110); HDL Direct 29 mg/dL; Magnesium 1.8 mg/dL (1.6-2.3); Osmolality Calculated 293 mOsm/kg (285-295); Potassium 4.3 mmol/L (3.4-5.0); Sodium 133 mmol/L (137-145); Total Protein 7.0 g/dL (6.3-8.2); Triglycerides 277 mg/dL (<150)
[2024-11-04 12:52] LABS: Thyroid Stimulating Hormone Reflex 1.250 uIU/mL (0.465-4.68)
== END 2024-11-04 11:54 | disposition home or self-care (01) ==
LOC: CHSLAB 11:54
PROVIDERS: PCP Nurse Practitioner Family; Visit Provider Nurse Practitioner Family
DX: Z00.00 Encounter for general adult medical examination without abnormal findings (principal); E83.42 Hypomagnesemia
CPT/HCPCS: 36415; 80053; 80061; 82010; 83036; 83735; 84443; 85025

== ENCOUNTER 2024-11-15 11:51 | Outpatient (CLI) | payer OTHER, SELFPAY ==
--- NOTE | ~2024-11-15 | CT_ITS ---
CT Scan of the Chest without Contrast: Clinical Indication: Lung cancer screening, nicotine dependence Technique: Contiguous sections were acquired throughout the chest without intravenous contrast. Dose reduction technique was used on this scan by utilizing automated exposure control and iterative recon struction technique. The dose-length product (DLP) was 274.60 mGy-cm. Findings: There is a 16 mm circumscribed mass in the anterior mediastinum (axial image 39). No other lymphadeno ken or mediastinal mass evident. Extensive coronary artery calcifications are present. There is no evidence of pleural or pericardial effusion. The lungs are clear. No pulmonary nodules or infiltrates are noted. Images through the upper abdomen reveal no abnormalities. Impression: Lung RADS 1-S: Negative. [address] advised. 16 mm circumscribed mass in the anterior mediastinum, indeterminate, though most likely benign. Reviewed, dictated and finalized at [facility]. Impression: Lung RADS 1-S: Negative. [address] advised. 16 mm circumscribed mass in the anterior mediastinum, indeterminate, though mos t likely benign.
== END 2024-11-15 11:52 | disposition home or self-care (01) ==
LOC: CHSIMG 11:53
PROVIDERS: PCP Nurse Practitioner Family; Visit Provider Nurse Practitioner Family
DX: Z12.2 Encounter for screening for malignant neoplasm of respiratory organs (principal); Z87.891 Personal history of nicotine dependence; R92.8 Other abnormal and inconclusive findings on diagnostic imaging of breast
CPT/HCPCS: 71271